=== PATIENT | male | born 1970 | race Caucasian/White ===

== ENCOUNTER 2019-06-22 09:54 | Day surgery (SDC) | payer SELFPAY ==
[~2019-06-22 09:54] MED LIST: HYDROmorphone 2 MG/ML VIAL IV PRN; IV RINGERS,LACTATED 1000ML 1,000 ML IV SCH; MORPHINE SULFATE 2 MG/ML VIAL. IV PRN; ONDANSETRON PF 4 MG/2 ML VIAL. IV PRN; PROCHLORPERAZINE 10 MG/2 ML VIAL. IV PRN; fentaNYL PF VIAL 100 MCG/2 ML VIAL IV PRN
[2019-06-22] MEDS ORDERED: VANCOMYCIN 1GM IVPB FOR OMNI 250 ML IV ONE (10:45)
[2019-06-22] MEDS ORDERED: BUPIVACAINE-EPI 0.5%-1:200000 MPF 30 ML VIAL. ONE (11:32)
[2019-06-22] MEDS ORDERED: LIDOCAINE 2% PF 5 ML VIAL. ONE (12:05)
[2019-06-22] MEDS ORDERED: DEXAMETHASONE SOD PHOS 4 MG/ML VIAL ONE (12:05)
[2019-06-22] MEDS ORDERED: fentaNYL PF VIAL 100 MCG/2 ML VIAL ONE (12:05)
[2019-06-22] MEDS ORDERED: ONDANSETRON PF 4 MG/2 ML VIAL. ONE (12:05)
[2019-06-22] MEDS ORDERED: PROPOFOL 20 ML IV ONE (12:05)
[2019-06-22] MEDS ORDERED: MIDAZOLAM HCL/PF 2 MG/2 ML VIAL. ONE (12:05)
[2019-06-22] MEDS ORDERED: KETOROLAC 30 MG/ML VIAL. ONE (13:01)
[2019-06-22] MEDS ORDERED: SEVOFLURANE 31 TO 60 MINUTES. IH ONE (13:01)
[2019-06-22] MEDS ORDERED: HYDR-3164 PO (13:21)
--- NOTE | 2019-06-22 13:23 | DISCH ---
DISCHARGE INSTRUCTIONS Condition on Discharge Condition on Discharge: Stable Activity After Discharge Activity Instructions for Disc: Activity as tolerated, Avoid exertion Lifting Instructions after Dis: No heavy lifting Driving Instructions after Dis: Do not drive (3-4 days) Diet after Discharge Diet after Discharge: Regular Wound Incision Care Wound/Incision Care: Ice to area for comfort Other wound/incision instructi: august shower Thursday Follow-Up Follow up with: Errol next week ROSA MEJIA MD Jun 22, 2019 13:23
--- NOTE | 2019-06-22 13:27 | PDOC ---
BRIEF OPERATIVE NOTE Date: Jun 22, 2019 Pre-Op Diagnosis right inguinal hernia Post-Op Diagnosis same, indirect Procedure Performed repair with mesh Surgeon Errol Warehouse Sorter Suzi MOELLER Anesthesia Type: General (LMA) Blood Loss 5cc IV Fluid 400cc Specimens Obtained none Findings indirect sack, adequate floor Complications none Operative Note # [id number] ROSA MEJIA MD Jun 22, 2019 13:27
[2019-06-22] MEDS ORDERED: HYDROcodone/APAP 5/325MG 1 TAB TABLET PO ONE (13:45)
[2019-06-22 13:50] VITALS: BP 116/78
--- NOTE | 2019-06-22 15:13 | OP ---
DATE OF SURGERY: 06/22/2019 PREOPERATIVE DIAGNOSIS: Right inguinal hernia. POSTOPERATIVE DIAGNOSIS: Right inguinal hernia, indirect. PROCEDURE: Repair with mesh. SURGEON: Sonu Mejia MD SPARK PLUG ASSEMBLER: SAJAN Pickard ANESTHESIA: General LMA. BLOOD LOSS: 5 mL. INTRAVENOUS FLUIDS: 400 mL. DESCRIPTION OF PROCEDURE: The patient was brought to the operating suite, given a general LMA and the right groin prepped and draped in usual sterile fashion. A 0.5% Marcaine with epinephrine was used to infiltrate the skin and subcutaneous tissue along the incision line. Incision made and dissection carried down to the external oblique fascia. Bleeders were cauterized or tied as identified. Fascia opened in the direction of its fibers and the cord was swept off the pubis. Santos drain placed around it and dissection carried back to the internal ring where an indirect hernia sac was identified, skeletonized and reduced. This was held in reduction with a small plug of Phasix mesh, tacked with 2-0 PDS, taking care to avoid injury to adjacent vessels. A keyhole patch was fashioned and placed over the floor of the canal. The slit closed with a single 2-0 PDS stitch. When hemostasis was present and a correct sponge count obtained, the cord was returned to its normal anatomical position. External oblique fascia closed over a running fashion with 3-0 Vicryl. Subcutaneous approximated with 3-0 Vicryl, skin closed with a subcuticular 4-0 Monocryl. Steri-Strips and sterile dressing applied. The patient was awakened from his anesthetic and taken to the recovery room in satisfactory condition. SONU MEJIA MD DR: ANSHUL/maggie JOB#: [id number] / [id number]
== END 2019-06-22 14:20 | disposition home or self-care (01) ==
LOC: SURG 09:54
PROVIDERS: ATTEND Surgery
DX: K40.90 Unilateral inguinal hernia, without obstruction or gangrene, not specified as recurrent (principal); J45.909 Unspecified asthma, uncomplicated
CPT/HCPCS: 49505; A7015; C1781; J1100; J1885; J2001; J2250; J2405; J2704; J3010; J3370; J3490